=== PATIENT | male | born 1990 | race Caucasian/White ===

== ENCOUNTER 2019-07-29 16:07 | Emergency (ER) | payer SELFPAY ==
[~2019-07-29] VITALS: Ht 172.7 cm; Wt 73.0 kg
[2019-07-29] MEDS ORDERED: SODIUM CHLORIDE 0.9% 1,000 ML IV ONE (18:29)
[2019-07-29] MEDS ORDERED: KETOROLAC 30MG/ML VIAL IV STA (18:29)
[2019-07-29 19:11] LABS: CHLORIDE 108 mEq/L (98-107)
[2019-07-29 19:31] LABS: BASOPHILS % 0.3 % (0.0-2.0); EOSINOPHILS % 1.3 % (0.0-5.0); HEMATOCRIT. 50.2 % (42.0-52.0); MEAN CORPUSCULAR VOLUME 94.6 fL (80.0-94.0); MEAN PLATELET VOLUME 9.1 fl (7.4-10.4); MONOCYTES % 10.1 % (2.0-8.0); NEUTROPHILS % 51.3 % (40.0-76.0); PLATELET 190 x1000/uL (130-400); RED CELL DISTRIBUTION WIDTH 12.7 % (11.6-14.6)
[2019-07-29 21:35] VITALS: BP 116/73
== END 2019-07-29 22:04 | disposition home or self-care (01) ==
LOC: ER 16:07
DX: R10.13 Epigastric pain (principal); R10.12 Left upper quadrant pain; Z98.890 Other specified postprocedural states; F17.200 Nicotine dependence, unspecified, uncomplicated; Z96.659 Presence of unspecified artificial knee joint
CPT/HCPCS: 36415; 74021; 80053; 83690; 84484; 85025; 93005; 96374; 99285; J1885; J7030